=== PATIENT | male | born 1935 | race Two or more races ===

== ENCOUNTER 2017-07-28 13:48 | Emergency (ER) | payer OTHER ==
[~2017-07-28] VITALS: Ht 180.3 cm; Wt 72.6 kg
[~2017-07-28 13:48] MED LIST: AMLO5TAB2; ASPI81TA2 PO; CARV6.25 PO; HYDR-3326 PO; LISI10TA5; LORA1TAB; LOSA50TA3 PO; OMEG300C3 PO; OMEP20CA10 PO; OXYB15TA; PANT40TA2 PO; PHEN100C4 PO; SIMV20TA6 PO
--- NOTE | 2017-07-28 13:55 | NUR ---
AAOX3, CAME TO ER C/O DIZZINESS, WEAKNESS, FLU SYMPTOMS x 3 DAYS. RESP IS EVEN AND UNLABORED WITH NAD NOTED. SKIN IS WARM AND DRY. AWAITING MD FOR EVAL.
--- NOTE | 2017-07-28 14:45 | NUR ---
Patient is resting comfortably in bed with eyes closed. Easily aroused. VSS
[2017-07-28] MEDS ORDERED: ACETAMINOPHEN 325 MG TABLET ONE (14:46)
[2017-07-28 14:49] LABS: APPEARANCE,URINE Clear (CLEAR); BILIRUBIN,URINE Negative (NEGATIVE); BLOOD, URINE Moderate Ery/uL (NEGATIVE); COLOR,URINE Yellow (YELLOW); KETONES,URINE Negative (NEGATIVE); LEUKOCYTE ESTERASE ,URINE Negative (NEGATIVE); NITRITE, URINE Negative (NEGATIVE); PROTEIN,URINE Negative (NEGATIVE); UGLUCOSE 250 MG/DL mg/dL (NEGATIVE); UROBILINOGEN,URINE 0.2 EU/dL (0.2)
[2017-07-28 14:50] LABS: BASOPHILS # (AUTO) 0.1 /CMM (0.0-0.2); EOSINOPHILS # (AUTO) 0.2 /CMM (0.0-0.7); EOSINOPHILS % (AUTO) 2.6 % (0.0-6.0); HEMATOCRIT 37 % (39-51); LYMPHOCYTES # (AUTO) 2.2 /CMM (0.8-4.8); LYMPHOCYTES % (AUTO) 25.9 % (20.0-44.0); MEAN CORPUSCULAR HEMOGLOBIN 31 PG (26.0-33.0); MEAN CORPUSCULAR HGB CONC 35 g/dl (31.0-36.0); MEAN CORPUSCULAR VOLUME 87 fL (80-96); MONOCYTES # (AUTO) 0.7 /CMM (0.1-1.30); MONOCYTES % (AUTO) 7.8 % (2.0-12.0); NEUTROPHILS # (AUTO) 5.4 /CMM (1.8-8.9); NEUTROPHILS % (AUTO) 62.7 % (43.0-81.0); PLATELET COUNT (AUTO) 168 /CMM (150-450); RDW COEFFICIENT OF VARIATION 12.7 (11.5-15.0); RED BLOOD CELL COUNT(AUTO) 4.28 MIL/uL (4.5-6.0); WHITE BLOOD COUNT (AUTO) 8.6 K/uL (4.3-11.0)
[2017-07-28 14:53] LABS: BACTERIA,URINE Few /HPF (None Seen); SQUAMOUS EPITHELIAL CELL,UR Rare /HPF (None Seen); WBC,URINE 0-2 /HPF (0-3)
[2017-07-28] MEDS ORDERED: IV NS 0.9% 500 ML BAG IV ONE (15:00)
[2017-07-28] MEDS ORDERED: ACETAMINOPHEN 325 MG TABLET PO ONE (15:00)
[2017-07-28 15:02] LABS: CALCIUM, SERUM 9.6 mg/dL (8.5-10.1); CARBON DIOXIDE 28 mmol/L (21-32); CHLORIDE 101 mmol/L (98-107); CREATININE 1.2 mg/dL (0.6-1.3); GLUCOSE 111 mg/dL (74-106); SODIUM SERUM 137 mmol/L (136-145); UREA NITROGEN, BLOOD 25 mg/dL (7-18)
[2017-07-28 15:05] LABS: INR 0.91 (0.87-1.13); PROTHROMBIN TIME 9.5 SECS (9.5-12.7)
[2017-07-28 15:08] LABS: ALANINE AMINOTRANSFERASE 25 U/L (12-78); ALBUMIN 4.1 g/dL (3.4-5.0); ALKALINE PHOSPHATASE 92 U/L (46-116); ASPARTATE AMINOTRANSFERASE 19 U/L (15-37); BILIRUBIN,DIRECT 0.1 mg/dL (0.0-0.2); BILIRUBIN,TOTAL 0.3 mg/dL (0.2-1.0); TOTAL PROTEIN, SERUM 7.1 g/dL (6.4-8.2)
[2017-07-28 15:10] LABS: TROPONIN I < 0.017 ng/mL (0.00-0.056)
[2017-07-28] MEDS ORDERED: ONDANSETRON HCL/PF 4 MG/2 ML VIAL IV ONE (15:30)
[2017-07-28] MEDS ORDERED: ONDANSETRON HCL/PF 4 MG/2 ML VIAL ONE (15:41)
--- NOTE | 2017-07-28 15:52 | NUR ---
PATIENT CAME BACK FROM CT VIA GURNEY. PATIENT REMAINS IN STABLE CONDITION AT THIS TIME.
--- NOTE | 2017-07-28 16:45 | NUR ---
Patient states that he's not taking dilantin or coreg at this time for about 1 yr and [address] Key made aware.
--- NOTE | 2017-07-28 16:50 | NUR ---
DR ENRIQUEZ AT BS FOR AN UPDATE AND RE-EVAL.
--- NOTE | 2017-07-28 17:15 | NUR ---
Per Dr Jack, he's not going to give anything for high blood pressure. Dr Jack told the patient to follow up with PMD.
--- NOTE | 2017-07-28 17:15 | NUR ---
FOOD TRAY PROVIDED AT
--- NOTE | 2017-07-28 17:25 | NUR ---
IV removed. Catheter intact and site benign. Pressure and 4x4 applied to site. No bleeding noted.Patient discharged to home in stable condition. Written and verbal after care instructions given. Patient verbalizes understanding of instruction. Patient was advised to follow up with PMD for seizure and blood pressure medication.
[2017-07-28 17:29] VITALS: BP 159/90
== END 2017-07-28 17:30 | disposition home or self-care (01) ==
LOC: ER 13:51
DX: R42 Dizziness and giddiness (principal); E86.0 Dehydration; I10 Essential (primary) hypertension; E11.9 Type 2 diabetes mellitus without complications; M19.90 Unspecified osteoarthritis, unspecified site; G40.909 Epilepsy, unspecified, not intractable, without status epilepticus; Z79.82 Long term (current) use of aspirin; Z98.890 Other specified postprocedural states; Z79.84 Long term (current) use of oral hypoglycemic drugs
CPT/HCPCS: 36415; 70450; 71010; 80048; 80076; 81001; 83880; 84484; 85025; 85730; 87081; 87804; 93005; 96374; 99285; A4606; J2405; J7040; 81000-TC; 87400; Z7610

== ENCOUNTER 2017-10-06 09:35 | Emergency (ER) | payer OTHER ==
[~2017-10-06] VITALS: Ht 180.3 cm; Wt 67.6 kg
[~2017-10-06 09:35] MED LIST changes: -AMLO5TAB2; +AMLO5TAB2 PO; +ASPI-1169 PO; -ASPI81TA2 PO; -LISI10TA5; +LISI10TA5 PO; -LORA1TAB; +LORA1TAB PO
[2017-10-06 10:24] LABS: BASOPHILS % (AUTO) 0.4 % (0.0-2.0); EOSINOPHILS # (AUTO) 0.1 /CMM (0.0-0.7); EOSINOPHILS % (AUTO) 1.6 % (0.0-6.0); HEMATOCRIT 37 % (39-51); HEMOGLOBIN 12.8 g/dL (13.5-17.5); LYMPHOCYTES # (AUTO) 1.6 /CMM (0.8-4.8); LYMPHOCYTES % (AUTO) 22.7 % (20.0-44.0); MEAN CORPUSCULAR HEMOGLOBIN 31 PG (26.0-33.0); MEAN CORPUSCULAR HGB CONC 35 g/dl (31.0-36.0); MEAN CORPUSCULAR VOLUME 88 fL (80-96); MONOCYTES # (AUTO) 0.6 /CMM (0.1-1.30); MONOCYTES % (AUTO) 8.4 % (2.0-12.0); NEUTROPHILS # (AUTO) 4.8 /CMM (1.8-8.9); NEUTROPHILS % (AUTO) 66.9 % (43.0-81.0); PLATELET COUNT (AUTO) 169 /CMM (150-450); RDW COEFFICIENT OF VARIATION 12.4 (11.5-15.0); RED BLOOD CELL COUNT(AUTO) 4.18 MIL/uL (4.5-6.0); WHITE BLOOD COUNT (AUTO) 7.1 K/uL (4.3-11.0)
[2017-10-06] MEDS ORDERED: PHEN200C5 PO (10:24)
[2017-10-06] MEDS ORDERED: GABA-532 PO (10:24)
[2017-10-06] MEDS ORDERED: PHEN300C6 PO (10:24)
[2017-10-06] MEDS ORDERED: ASPI-1169 PO (10:24)
[2017-10-06] MEDS ORDERED: OXYC-132 PO (10:24)
[2017-10-06 10:36] LABS: CALCIUM, SERUM 9.6 mg/dL (8.5-10.1); CARBON DIOXIDE 31 mmol/L (21-32); CHLORIDE 101 mmol/L (98-107); CREATININE 1.1 mg/dL (0.6-1.3); GLUCOSE 118 mg/dL (74-106); POTASSIUM 3.8 mmol/L (3.5-5.1); SODIUM SERUM 137 mmol/L (136-145); UREA NITROGEN, BLOOD 24 mg/dL (7-18)
[2017-10-06 10:40] LABS: INR 0.93 (0.87-1.13); PROTHROMBIN TIME 9.7 SECS (9.5-12.7)
[2017-10-06 10:42] LABS: ALANINE AMINOTRANSFERASE 25 U/L (12-78); ALBUMIN 3.9 g/dL (3.4-5.0); ALKALINE PHOSPHATASE 69 U/L (46-116); ASPARTATE AMINOTRANSFERASE 16 U/L (15-37); BILIRUBIN,DIRECT 0.1 mg/dL (0.0-0.2); BILIRUBIN,TOTAL 0.3 mg/dL (0.2-1.0); TOTAL PROTEIN, SERUM 7.2 g/dL (6.4-8.2)
[2017-10-06 10:43] LABS: TROPONIN I 0.018 ng/mL (0.00-0.056)
--- NOTE | 2017-10-06 11:00 | NUR ---
assume pt care. here for cough and congestion pt is concerned about pneumonia. 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 labs collected and awaiting results.
--- NOTE | 2017-10-06 12:29 | NUR ---
Patient discharged to home in stable condition. Written and verbal after care instructions given. Patient verbalizes understanding of instruction.IV removed. Catheter intact and site benign. Pressure and 4x4 applied to site. No bleeding noted.
[2017-10-06 12:30] VITALS: BP 152/94
== END 2017-10-06 12:31 | disposition home or self-care (01) ==
LOC: ER 09:41
DX: J20.9 Acute bronchitis, unspecified (principal); E11.9 Type 2 diabetes mellitus without complications; F41.9 Anxiety disorder, unspecified; I10 Essential (primary) hypertension; Z79.82 Long term (current) use of aspirin
CPT/HCPCS: 36415; 71045-TC; 80048-TC; 80076-TC; 83605-TC; 84484-TC; 85025-TC; 85730-TC; 87040-TC; A4606; Z7610

== ENCOUNTER 2017-11-22 19:46 | Emergency (ER) | payer OTHER ==
[~2017-11-22] VITALS: Ht 182.9 cm; Wt 72.6 kg
[~2017-11-22 19:46] MED LIST changes: -CARV6.25 PO; +GABA-532 PO; -HYDR-3326 PO; -LOSA50TA3 PO; -OMEG300C3 PO; -OXYB15TA; +OXYC-132 PO; -PANT40TA2 PO; -PHEN100C4 PO; +PHEN200C5 PO; +PHEN300C6 PO
--- NOTE | 2017-11-22 19:58 | NUR ---
PT BIBSELF PT STATES "BEEN COUGHING FOR YEARS AND NOW VOMITING AFTER COUGHING" PT AOX3 RR EVEN AND UNLABORED. NO SOB NOTED. NAD NOTED. NO NVD AT THIS TIME. PT GOWNED AND PLACED ON MONITOR WAITING FOR MD SAMUEL.
--- NOTE | 2017-11-22 20:01 | NUR ---
DR. DICKSON AT BEDSIDE FOR EVAL.
[2017-11-22] MEDS ORDERED: MORPHINE SULFATE INJ 2 MG/ML DISP.SYRIN IV ONE (20:30)
[2017-11-22] MEDS ORDERED: MORPHINE SULFATE INJ 4 MG/ML DISP.SYRIN ONE (20:30)
[2017-11-22] MEDS ORDERED: ONDANSETRON HCL/PF 4 MG/2 ML VIAL IVP ONE (20:30)
[2017-11-22] MEDS ORDERED: ONDANSETRON HCL/PF 4 MG/2 ML VIAL ONE (20:30)
--- NOTE | 2017-11-22 20:30 | NUR ---
PT TO CT.
--- NOTE | 2017-11-22 20:33 | NUR ---
Sarahi welch in [facility] - 11/22/17 at 2035 by LILLY PT [address].
--- NOTE | 2017-11-22 20:35 | NUR ---
PT RETURNED FROM CT.
[2017-11-22 20:42] LABS: BASOPHILS % (AUTO) 0.4 % (0.0-2.0); EOSINOPHILS % (AUTO) 0.3 % (0.0-6.0); HEMATOCRIT 41 % (39-51); HEMOGLOBIN 14.2 g/dL (13.5-17.5); LYMPHOCYTES # (AUTO) 0.5 /CMM (0.8-4.8); LYMPHOCYTES % (AUTO) 4.5 % (20.0-44.0); MEAN CORPUSCULAR HEMOGLOBIN 31 PG (26.0-33.0); MEAN CORPUSCULAR HGB CONC 35 g/dl (31.0-36.0); MEAN CORPUSCULAR VOLUME 89 fL (80-96); MONOCYTES # (AUTO) 0.5 /CMM (0.1-1.30); MONOCYTES % (AUTO) 4.5 % (2.0-12.0); NEUTROPHILS # (AUTO) 11.1 /CMM (1.8-8.9); NEUTROPHILS % (AUTO) 90.3 % (43.0-81.0); PLATELET COUNT (AUTO) 209 /CMM (150-450); RDW COEFFICIENT OF VARIATION 13.5 (11.5-15.0); RED BLOOD CELL COUNT(AUTO) 4.57 MIL/uL (4.5-6.0); WHITE BLOOD COUNT (AUTO) 12.1 K/uL (4.3-11.0)
--- NOTE | 2017-11-22 20:45 | NUR ---
LICHA AT BEDSIDE
[2017-11-22 21:12] LABS: CALCIUM, SERUM 9.3 mg/dL (8.5-10.1); CARBON DIOXIDE 24 mmol/L (21-32); CHLORIDE 101 mmol/L (98-107); CREATININE 1.3 mg/dL (0.6-1.3); GLUCOSE 135 mg/dL (74-106); POTASSIUM 4.6 mmol/L (3.5-5.1); SODIUM SERUM 137 mmol/L (136-145); UREA NITROGEN, BLOOD 40 mg/dL (7-18)
[2017-11-22 21:23] LABS: ALANINE AMINOTRANSFERASE 31 U/L (12-78); ALBUMIN 3.8 g/dL (3.4-5.0); ALKALINE PHOSPHATASE 104 U/L (46-116); ASPARTATE AMINOTRANSFERASE 17 U/L (15-37); BILIRUBIN,DIRECT 0.1 mg/dL (0.0-0.2); BILIRUBIN,TOTAL 0.3 mg/dL (0.2-1.0); LIPASE 488 U/L (73-393); TOTAL PROTEIN, SERUM 7.6 g/dL (6.4-8.2)
--- NOTE | 2017-11-22 21:25 | NUR ---
DR. DICKSON AT BEDSIDE SPEAKING TO PT REGARDING RESULTS.
--- NOTE | 2017-11-22 21:32 | NUR ---
URINE COLLECTED. CALLED LAB FOR SALESP[employer] PIANOS AND ORGANS.
--- NOTE | 2017-11-22 21:52 | NUR ---
DR. DICKSON AT BEDSIDE SPEAKING TO PT REGARDING RESULTS.
[2017-11-22] MEDS ORDERED: PHENYTOIN EXTENDED RELEASE 100 MG CAPSULE PO ONE ×2 (21:55→22:00)
[2017-11-22] MEDS ORDERED: IV NS 0.9% 1,000 ML BAG IV ONE (22:00)
[2017-11-22] MEDS ORDERED: IPRATROPIUM NEB FS 0.5 MG/2.5 ML AMPUL.NEB NEB ONE (23:00)
[2017-11-22] MEDS ORDERED: ALBUTEROL FS 2.5 MG/3 ML VIAL.NEB NEB ONE ×2 (23:00→23:30)
--- NOTE | 2017-11-22 23:04 | NUR ---
RT CALLED FOR BREATHING TX.
[2017-11-22] MEDS ORDERED: ALBUTEROL FS 2.5 MG/3 ML VIAL.NEB ONE ×2 (23:09→23:13)
[2017-11-22] MEDS ORDERED: IPRATROPIUM NEB FS 0.5 MG/2.5 ML AMPUL.NEB ONE (23:10)
--- NOTE | 2017-11-22 23:10 | NUR ---
RT AT BEDSIDE FOR BREATHING TX.
--- NOTE | 2017-11-22 23:11 | NUR ---
DR. ABBOTT AT BEDSIDE FOR EVAL.
[2017-11-22] MEDS ORDERED: methylPREDNISolone SOD SUCC 125 MG/2ML VIAL ONE (23:14)
--- NOTE | 2017-11-22 23:18 | NUR ---
VERBAL ORDERS PER DR. ABBOTT TO GIVE IVP SOLUMEDROL 125MG ONE TIME. PT MEDICATED.
--- NOTE | 2017-11-22 23:25 | NUR ---
RADIOLOGY AT BEDSIDE FOR CXR
[2017-11-22 23:29] LABS: APPEARANCE,URINE CLEAR (CLEAR); BILIRUBIN,URINE NEGATIVE (NEGATIVE); BLOOD, URINE 2+ Ery/uL (NEGATIVE); COLOR,URINE YELLOW (YELLOW); KETONES,URINE NEGATIVE (NEGATIVE); LEUKOCYTE ESTERASE ,URINE NEGATIVE (NEGATIVE); NITRITE, URINE NEGATIVE (NEGATIVE); PROTEIN,URINE TRACE mg/dl (NEGATIVE); UGLUCOSE NEGATIVE (NEGATIVE); UROBILINOGEN,URINE 0.2 EU/dL (0.2)
[2017-11-22] MEDS ORDERED: methylPREDNISolone SOD SUCC 125 MG/2ML VIAL IV ONE (23:30)
[2017-11-22 23:34] LABS: BACTERIA,URINE None seen /HPF (None Seen); SQUAMOUS EPITHELIAL CELL,UR Few /HPF (None Seen); WBC,URINE 0-2 /HPF (0-3)
--- NOTE | 2017-11-23 00:13 | NUR ---
DR. ABBOTT AT BEDSIDE SPEAKING TO PT REGARDING RESULTS.
[2017-11-23] MEDS ORDERED: MAG HYDROX/AL HYDROX/SIMETH 30 ML UDC ONE (00:19)
[2017-11-23] MEDS ORDERED: LIDOCAINE VISCOUS 2% UD 15 ML UDC ONE (00:19)
[2017-11-23] MEDS ORDERED: FAMOTIDINE (20 MG) 20 MG TABLET ONE (00:19)
[2017-11-23] MEDS ORDERED: LIDOCAINE VISCOUS 2% UD 15 ML UDC MM ONE (00:30)
[2017-11-23] MEDS ORDERED: FAMOTIDINE (20 MG) 20 MG TABLET PO ONE (00:30)
[2017-11-23] MEDS ORDERED: MAG HYDROX/AL HYDROX/SIMETH 30 ML UDC PO ONE (00:30)
--- NOTE | 2017-11-23 00:33 | NUR ---
IV removed. Catheter intact and site benign. Pressure and 4x4 applied to site. No bleeding noted. Patient discharged to home in stable condition. Written and verbal after care instructions given. Patient verbalizes understanding of instruction. ambulatory with a steady gait
[2017-11-23 00:35] VITALS: BP 150/78
== END 2017-11-23 00:36 | disposition home or self-care (01) ==
LOC: ER 19:46
DX: R11.2 Nausea with vomiting, unspecified (principal); E86.0 Dehydration; R19.7 Diarrhea, unspecified; N28.1 Cyst of kidney, acquired; E11.9 Type 2 diabetes mellitus without complications; F41.9 Anxiety disorder, unspecified; G40.909 Epilepsy, unspecified, not intractable, without status epilepticus; I10 Essential (primary) hypertension; R79.89 Other specified abnormal findings of blood chemistry; J44.9 Chronic obstructive pulmonary disease, unspecified; Z79.82 Long term (current) use of aspirin
CPT/HCPCS: 36415; 71045-TC; 76705-TC; 80048-TC; 80076-TC; 80185-TC; 81000-TC; 83690-TC; 85025-TC; A4606; J2270; J2405; J2930; J7030; Z7610

== ENCOUNTER 2018-01-14 16:24 | Emergency (ER) | payer OTHER ==
[~2018-01-14] VITALS: Ht 182.9 cm; Wt 74.8 kg
[~2018-01-14 16:24] MED LIST changes: -AMLO5TAB2 PO; +AMLO5TAB7 PO
--- NOTE | 2018-01-14 16:40 | NUR ---
AAOX3, CAME TO ER C/O RIGHT WRIST DEFORMITY S/P FALLING OUT OF BED. PT STATES HE TRIPPED AND FELL, DENIES KO. RR IS EVEN AND UNLABORED WITH NAD NOTED. SKIN IS WARM AND DRY. [facility] WNL. AWAITING MD FOR EVAL.
[2018-01-14] MEDS ORDERED: HYDROCODONE/APAP 5/325MG 1 EACH TABLET ONE (16:59)
[2018-01-14] MEDS ORDERED: HYDROCODONE/APAP 5/325MG 1 EACH TABLET PO ONE (17:00)
--- NOTE | 2018-01-14 17:03 | NUR ---
LISA AT BS.
--- NOTE | 2018-01-14 18:06 | NUR ---
Patient discharged to home in stable condition. Written and verbal after care instructions given. Patient verbalizes understanding of instruction.
[2018-01-14 18:08] VITALS: BP 132/82
== END 2018-01-14 18:21 | disposition home or self-care (01) ==
LOC: ER 16:25
DX: S52.501A Unspecified fracture of the lower end of right radius, initial encounter for closed fracture (principal); S52.601A Unspecified fracture of lower end of right ulna, initial encounter for closed fracture; E11.9 Type 2 diabetes mellitus without complications; F41.9 Anxiety disorder, unspecified; I10 Essential (primary) hypertension; Z79.82 Long term (current) use of aspirin; W06.XXXA Fall from bed, initial encounter; Y93.89 Activity, other specified; Y92.89 Other specified places as the place of occurrence of the external cause; Y99.8 Other external cause status
CPT/HCPCS: 29125; 73090; 73110; 99284; A4606; Z7610